=== PATIENT | male | born 1975 | race African-American/Black ===

== ENCOUNTER 2018-09-24 08:48 | Emergency (ER) | payer SELFPAY ==
[~2018-09-24] VITALS: Ht 185.4 cm; Wt 102.1 kg
[~2018-09-24 08:48] MED LIST: ACHD5005 PO; AMOX500C2 PO; CEFP500T4 PO; NAPR-243 PO; ONDAN4ODT PO
--- OUTSIDE RECORDS SUMMARY | 2018-09-24 08:53 | XMS REPORT | Continuity of Care Document ---
Author Organization Unknown Address Unknown Allergies Active Description Code Type Severity Reaction Onset Reported/Identified Relationship to Patient Clinical Status Yes No Known Drug Allergies [id number] Drug Allergy Unknown N/A 12/17/2012 Medications There is no data. Problems Date Dx Coded Attending Type Code Diagnosis Diagnosed By 12/17/2012 DANIEL DANIELS Ot 305.1 TOBACCO USE DISORDER 12/17/2012 DANIEL DANIELS Ot 521.00 UNSPEC DENTAL CARIES 12/17/2012 DANIEL DANIELS Ot 522.5 PERIAPICAL ABSCESS 02/15/2013 CHEMA HART DO Ot 382.9 OTITIS MEDIA NOS 02/15/2013 CHEMA HART DO Ot 388.70 OTALGIA NOS 02/15/2013 CHEMA HART DO Ot 462 ACUTE PHARYNGITIS 02/15/2013 CHEMA HART DO Ot 521.00 UNSPEC DENTAL CARIES Procedures There is no data. Results There is no data. Encounters ACCT No. Visit Date/Time Discharge Status Pt. Type Provider Facility Loc./Unit Complaint [id number] 02/15/2013 11:08:00 02/15/2013 12:19:00 DIS Emergency CHEMA HART DO [facility] ER EARACHE/DENTAL PAIN/SORE THROAT [id number] 12/17/2012 15:09:00 12/17/2012 16:22:00 DIS Emergency DANIEL DANIELS [facility] ER R FACIAL PAIN
--- OUTSIDE RECORDS SUMMARY | 2018-09-24 08:53 | XMS REPORT | Continuity of Care Document ---
Author Author [facility] [place] [facility] Address Unknown Phone Unavailable Insurance Providers Payer Name Policy Number Subscriber Name Relationship Self Pay Ham Au 01 Self / Same As Patient Advance Directives Directive Response Recorded Date Advance Directives N 12/17/12 3:20pm Problems No Known Problems or Medical conditions. Social History History Response Recorded Date/Time Alcohol Use Occasionally Uses 12/17/12 3:20pm Recreational Drug Use N 12/17/12 3:20pm Allergies, Adverse Reactions, Alerts Allergen Type Severity Reaction Last Updated No Known Drug Allergies 12/17/12 Medications Medication Dose Units Route Sig Qty Days Amoxicillin 2 Each PO TID 10 Hydrocodone Bit/Acetaminophen (Hydrocodon-Acetaminophen 5-325) 1 Each PO Q4H PRN 10 Response Recorded Date/Time Status not known Unknown Results No Known Relevant Diagnostic Tests, Laboratory Data and/or Discharge Summary. Encounters Encounter Location Date/Time Departed Emergency Room [facility] 12/17/12 3:09pm
--- NOTE | 2018-09-24 09:03 | NUR ---
PT NOT IN WAITING ROOM AT THIS TIME.
[2018-09-24] MEDS ORDERED: TRAM-42 PO (09:41)
[2018-09-24] MEDS ORDERED: AMOX500C2 PO (09:41)
--- NOTE | 2018-09-24 09:41 | ED EENT ---
History of Present Illness General Chief Complaint: Dental Problems/Pain Stated Complaint: MOUTH / FACE / HEAD PAIN Nursing Triage Note: ARRIVED VIA AMB TO ROOM 06 WITH COMPLAINTS OF FACIAL/HEAD PAIN THAT HE THINKS IS RELATED TO A TOOTH. Source: patient Exam Limitations: no limitations History of Present Illness Date Seen by Provider: Sep 24, 2018 Time Seen by Provider: 09:26 Initial Comments This 43-year-old gentleman presents to the emergency room with complaints of pain in the right face that seems to be originating from a right upper tooth. He has had facial pain for about a week and questionable subjective fever. He used a hydrocodone without benefit. He states he has been told not to take ibuprofen by Dr. Marroquin due to GI issues in the past. He had a recent root canal on the left. He has had multiple dental extractions and other dental procedures performed. He is afebrile. Allergies and Home Medications Allergies Coded Allergies: No Known Drug Allergies (Unverified , 12/17/12) Home Medications Amoxicillin 500 Mg Capsule, 1,000 MG PO BID Prescribed by: DASHAWN COLLINS on 09/24/18 0941 Tramadol HCl 50 Mg Tablet, 50 MG PO Q6H PRN for PAIN-MODERATE TO SEVERE Prescribed by: DASHAWN COLLINS on 09/24/18 0941 Patient Home Medication List Home Medication List Reviewed: Yes Review of Systems Review of Systems Constitutional: no symptoms reported Eyes: No Symptoms Reported Ears: No Symptoms Reported Nose: no symptoms reported Mouth: see HPI Throat: no symptoms reported Respiratory: no symptoms reported Cardiovascular: no symptoms reported Gastrointestinal: no symptoms reported Musculoskeletal: no symptoms reported Skin: no symptoms reported Neurological: No Symptoms Reported Hematologic/Lymphatic: No Symptoms Reported Past Njtjdyw-Pmxxlx-Pjphtn Hx Past Med/Social Hx: Reviewed and Corrections made Patient Social History Alcohol Use: Denies Use Recreational Drug Use: No Recent Foreign Travel: No Contact w/Someone Who Travel: No Recent Infectious Disease Expo: No Past Medical History Surgeries: Yes (dental) Respiratory: No Cardiac: No Neurological: No Genitourinary: No Gastrointestinal: No Musculoskeletal: No Endocrine: No Cancer: No Psychosocial: No Integumentary: No Blood Disorders: No Family Medical History No Pertinent Family Hx Physical Exam Vital Signs Vital Signs - First Documented 09/24/18 09:10 Temp 97.2 Pulse 100 Resp 16 B/P (MAP) 137/89 (105) Pulse Ox 96 O2 Delivery Room Air Height, Weight, BMI Height: 6'1.00" Weight: 225lbs. oz. 102.227977de; 30.87 BMI Method:Stated General Appearance: WD/WN, mild distress Eyes: bilateral eye normal inspection, bilateral eye PERRL, bilateral eye EOMI Ears: bilateral ear auricle normal, bilateral ear canal normal, bilateral ear TM normal Nose: normal inspection Mouth/Throat: pharynx normal, other (tenderness around the right upper posterior gingiva without overt abscess or drainage. Multiple missing teeth. Multiple dental caries. Facial tenderness in the maxillary region noted.) Neck: supple, normal inspection; No lymphadenopathy (R), No lymphadenopathy (L) Cardiovascular: regular rate, rhythm, no edema, no murmur Respiratory: lungs clear, normal breath sounds, no respiratory distress, no accessory muscle use Neurologic/Psychiatric: bushel girl II-XII nml as tested, no motor/sensory deficits, alert, normal mood/affect, oriented x 3 Skin: normal color, warm/dry Progress/Results/Core Measures Results/Orders My Orders Vital Signs/I&O Blood Pressure Mean: 105 Progress Progress Note : Progress Note Patient was given a Toradol injection and prescriptions were provided. Departure Impression Primary Impression: Pain, dental Disposition: 01 HOME, SELF-CARE Condition: Improved Departure-Patient Inst. Decision time for Depature: 09:36 Referrals: NO,LOCAL PHYSICIAN (PCP/Family) Primary Care Physician Patient Instructions: Dental Pain (DC) Add. Discharge Instructions: [place] your teeth gently twice daily with a soft bristle toothbrush. UA also rinse twice daily with an antiseptic mouthwash if tolerated. Follow-up with the dentist as soon as possible. Complete your antibiotics as prescribed. For pain you may take Tylenol (acetaminophen) up to 1000 mg every 6 hours in combination with Ultram (tramadol) as prescribed. Return to care if you have worsening symptoms despite treatment or if you develop new symptoms such as fevers over 100, obvious swelling of the face, development of abscess, etc. All discharge instructions reviewed with patient and/or family. Voiced understanding. Scripts Tramadol HCl (Ultram) 50 Mg Tablet 50 MG PO Q6H PRN for PAIN-MODERATE TO SEVERE, #20 TAB Prov: DASHAWN ABDALLA MD 09/24/18 Amoxicillin (Amoxicillin) 500 Mg Capsule 1000 MG PO BID, #21 CAP 0 Refills Prov: DASHAWN ABDALLA MD 09/24/18 DASHAWN ABDALLA MD Sep 24, 2018 09:41
[2018-09-24] MEDS ORDERED: KETOROLAC 30 MG/ML VIAL IM ONE (09:45)
[2018-09-24 10:00] VITALS: BP 127/83
== END 2018-09-24 10:00 | disposition home or self-care (01) ==
LOC: EDUNIT# 08:48 → ER 08:49
DX: K08.89 Other specified disorders of teeth and supporting structures (principal)
CPT/HCPCS: 99284

== ENCOUNTER 2018-10-05 12:33 | Emergency (ER) | payer SELFPAY ==
[~2018-10-05] VITALS: Ht 185.4 cm; Wt 102.1 kg
[~2018-10-05 12:33] MED LIST changes: +TRAM-42 PO
--- OUTSIDE RECORDS SUMMARY | 2018-10-05 12:38 | XMS REPORT | Continuity of Care Document ---
Author Organization Unknown Address Unknown Allergies Active Description Code Type Severity Reaction Onset Reported/Identified Relationship to Patient Clinical Status Yes No Known Drug Allergies [id number] Drug Allergy Unknown N/A 12/17/2012 Medications There [...] HART DO Ot 521.00 UNSPEC DENTAL CARIES 09/28/2018 LIANNE JALLOH, DASHAWN Austin Ot K08.89 OTHER SPECIFIED DISORDERS OF TEETH AND S 10/01/2018 DASHAWN ABDALLA MD Ot K08.89 OTHER SPECIFIED DISORDERS OF TEETH AND S Procedures There is no data. Results There is no data. Encounters ACCT No. Visit Date/Time Discharge Status Pt. Type Provider Facility Loc./Unit Complaint [id number] 09/24/2018 08:49:00 09/24/2018 10:00:00 DIS Outpatient DASHAWN ABDALLA MD [facility] ER MOUTH / FACE / HEAD PAIN [id number] 02/15/2013 11:08:00 02/15/2013 12:19:00 DIS Emergency CHEMA HART DO [facility] ER EARACHE/DENTAL PAIN/SORE THROAT [id number] 12/17/2012 15:09:00 12/17/2012 16:22:00 DIS Emergency DANIEL DANIELS [facility] ER R FACIAL PAIN
[2018-10-05] MEDS ORDERED: DOXY100T2 PO (12:44)
--- NOTE | 2018-10-05 12:44 | ED GU-Male ---
General Stated Complaint: TESTICULAR SWELLING Source: patient Exam Limitations: no limitations History of Present Illness Date Seen by Provider: Oct 05, 2018 Time Seen by Provider: 12:39 Initial Comments To ER with reports of right testicular swelling and pain. This began a few days ago, he notices improvement when he lifts of the testicles. Pain radiates into the low abdomen. It seems to affect both testicles but right greater than left. Girlfriend is currently being evaluated for UTI, he suspects he may have caught this from her. Overall his pain is much improved from previously he would still like to be checked Timing/Duration: getting worse Severity/Quality: moderate Radiation: none Prior Genitourinary Problems: none Associated Symptoms: dysuria Allergies and Home Medications Allergies Coded Allergies: No Known Drug Allergies (Unverified , 12/17/12) Home Medications Amoxicillin 500 Mg Capsule, 1,000 MG PO BID Prescribed by: DASHAWN COLLINS on 09/24/18 0941 Doxycycline Hyclate 100 Mg Tablet, 100 MG PO BID Prescribed by: ZACH CULLEN on 10/05/18 1244 Tramadol HCl 50 Mg Tablet, 50 MG PO Q6H PRN for PAIN-MODERATE TO SEVERE Prescribed by: DASHAWN COLLINS on 09/24/18 0941 Patient Home Medication List Home Medication List Reviewed: Yes Review of Systems Review of Systems Constitutional: see HPI EENTM: see HPI Respiratory: no symptoms reported Cardiovascular: no symptoms reported Genitourinary: see HPI Musculoskeletal: no symptoms reported Skin: no symptoms reported Psychiatric/Neurological: No Symptoms Reported Endocrine: No Symptoms Reported Past Vtgxsdr-Bunouu-Zulqgi Hx Patient Social History Recent Foreign Travel: No Contact w/Someone Who Travel: No Past Medical History Surgeries: Yes (dental) Respiratory: No Cardiac: No Neurological: No Genitourinary: No Gastrointestinal: No Musculoskeletal: No Endocrine: No Cancer: No Psychosocial: No Integumentary: No Blood Disorders: No Family Medical History No Pertinent Family Hx Physical Exam Vital Signs Vital Signs - First Documented 10/05/18 12:43 Temp 97.9 Pulse 70 Resp 20 B/P (MAP) 141/95 (110) Pulse Ox 99 O2 Delivery Room Air Capillary Refill : Height, Weight, BMI Height: 6'1.00" Weight: 225lbs. oz. 102.290956ji; 30.87 BMI Method:Stated General Appearance: WD/WN, no apparent distress HEENT: PERRL/EOMI, normal ENT inspection Cardiovascular: regular rate, rhythm, no murmur Respiratory: no respiratory distress, no accessory muscle use Genital/Rectal: normal genital exam, other (Minimal tenderness to palpation of the right epididymis) Neurologic/Psychiatric: alert, normal mood/affect, oriented x 3 Skin: normal color, warm/dry Progress/Results/Core Measures Suspected Sepsis SIRS Temperature: Pulse: Respiratory Rate: Blood Pressure / Mean: Results/Orders My Orders Orders - ZACH CULLEN APRN Ua Culture If Indicated (10/05/18 12:37) Neis Maxwell Dna Urine Test (10/05/18 12:37) Chlamydia Trachomatis Urine (10/05/18 12:37) Azithromycin Tablet (Zithromax Tablet) (10/05/18 12:45) Ceftriaxone For Im Use (Rocephin For Im (10/05/18 12:45) Lidocaine 1% Inj 20 Ml (Xylocaine 1% Inj (10/05/18 12:45) Vital Signs/I&O 10/05/18 12:43 Temp 97.9 Pulse 70 Resp 20 B/P (MAP) 141/95 (110) Pulse Ox 99 O2 Delivery Room Air Capillary Refill : Departure Impression Primary Impression: Epididymitis Disposition: 01 HOME, SELF-CARE Condition: Stable Departure-Patient Inst. Decision time for Depature: 12:43 Referrals: NO,LOCAL PHYSICIAN (PCP/Family) Primary Care Physician Patient Instructions: Epididymitis Add. Discharge Instructions: 1. Pain will improve with elevation of the scrotum/testicles. Pain medication as directed. Ice pack will also help with the discomfort. Antibiotics as directed. Scripts Doxycycline Hyclate (Doxycycline Hyclate) 100 Mg Tablet 100 MG PO BID, #20 TAB 0 Refills Prov: ZACH CULLEN APRN 10/05/18 ZACH CULLEN APRN Oct 05, 2018 12:44
[2018-10-05] MEDS ORDERED: cefTRIAXone 1,000 MG/2.86 ml vial (IM ONLY) IM ONE (12:45)
[2018-10-05] MEDS ORDERED: LIDOCAINE 1% INJ 20 ML 20 ML VIAL INJ ONE (12:45)
[2018-10-05] MEDS ORDERED: AZITHROMYCIN 250 MG TAB (ZITHROMAX) PO SCH (12:45)
[2018-10-05 13:02] LABS: BILIRUBIN,URINE NEGATIVE (NEGATIVE); CLARITY,URINE CLEAR; COLOR,URINE YELLOW; GLUCOSE, URINE (UA) NEGATIVE (NEGATIVE); KETONES,URINE NEGATIVE (NEGATIVE); LEUKOCYTE ESTERASE ,URINE 1+ (NEGATIVE); NITRITE,URINE NEGATIVE (NEGATIVE); PH,URINE 7 (5-9); PROTEIN,URINE 1+ (NEGATIVE); UROBILINOGEN,URINE 1 MG/DL (NORMAL)
[2018-10-05 13:18] LABS: BACTERIA,URINE NEGATIVE /HPF; RBC,URINE RARE /HPF
[2018-10-05 13:28] VITALS: BP 141/95
== END 2018-10-05 13:27 | disposition home or self-care (01) ==
LOC: EDUNIT# 12:33 → ER 12:34
DX: N45.1 Epididymitis (principal)
CPT/HCPCS: 36415; 81000; 87088; 87491; 87591; 96372; 99284

== ENCOUNTER 2018-12-03 22:39 | Emergency (ER) | payer SELFPAY ==
[~2018-12-03] VITALS: Ht 185 cm; Wt 103.0 kg
[~2018-12-03 22:39] MED LIST changes: +DOXY100T2 PO
[2018-12-03] MEDS ORDERED: IBUPROFEN 800 MG (MOTRIN) TAB PO STA (22:50)
--- NOTE | 2018-12-03 22:56 | ED Upper Extremity ---
General Stated Complaint: RT SHOULDER PAIN Source: patient History of Present Illness Date Seen by Provider: Dec 03, 2018 Time Seen by Provider: 22:42 Initial Comments 43-year-old male presenting with complaints of right shoulder pain. He was helping to carry him moved some heavy tree limbs around 5 PM when the person helping him dropped to the other side of the limb. This caused him to be going on care and the have a tree limb and it was too heavy for him to continue to hold. He felt something pop in his shoulder and upper arm. He dropped the limb and has had continued pain ever since. He has not taken anything for the pain. He came in now at almost 11 PM, almost 6 hours after the injury. He denies any numbness or tingling in his arm. He has increased pain trying to raise his arm. He states that it feels like his arm was flexing on the right side when he isn't moving it. Allergies and Home Medications Allergies Coded Allergies: No Known Drug Allergies (Unverified , 12/17/12) Home Medications Amoxicillin 500 Mg Capsule, 1,000 MG PO BID Prescribed by: DASHAWN COLLINS on 09/24/18 0941 Doxycycline Hyclate 100 Mg Tablet, 100 MG PO BID Prescribed by: ZACH CULLEN on 10/05/18 1244 Ibuprofen 800 Mg Tablet, 800 MG PO Q8H PRN for PAIN Prescribed by: ERNESTINA HOUSTON on 12/03/18 2327 Tramadol HCl 50 Mg Tablet, 50 MG PO Q6H PRN for PAIN-MODERATE TO SEVERE Prescribed by: DASHAWN COLLINS on 09/24/18 0941 Patient Home Medication List Home Medication List Reviewed: Yes Review of Systems Constitutional: No chills, No fever EENTM: no symptoms reported Respiratory: no symptoms reported Cardiovascular: no symptoms reported Gastrointestinal: no symptoms reported Genitourinary: no symptoms reported Musculoskeletal: see HPI Skin: no symptoms reported Psychiatric/Neurological: No Symptoms Reported Past Vlhvtcw-Mhpbue-Dfhkgc Hx Past Med/Social Hx: Reviewed Nursing Past Med/Soc Hx Patient Social History Alcohol Beverage of Choice: Beer, Whiskey Type Used: Cigarettes Recent Foreign Travel: No Contact w/Someone Who Travel: No Recent Hopitalizations: No Seasonal Allergies Seasonal Allergies: Yes Past Medical History Surgeries: Yes (dental) Respiratory: No Cardiac: No Neurological: No Genitourinary: No Gastrointestinal: No Musculoskeletal: No Endocrine: No HEENT: No Cancer: No Psychosocial: No Integumentary: No Blood Disorders: No Family Medical History No Pertinent Family Hx Physical Exam Vital Signs Vital Signs - First Documented 12/03/18 22:43 Temp 36.3 Pulse 109 Resp 18 B/P (MAP) 161/92 (115) Pulse Ox 96 O2 Delivery Room Air Capillary Refill : Height, Weight, BMI Height: 6'1.00" Weight: 225lbs. oz. 102.423336lc; 30.87 BMI Method:Stated General Appearance: WD/WN, no apparent distress Cardiovascular: normal peripheral pulses Shoulder: bone tenderness, pain, soft tissue tenderness (pain with palpation over the shoulder and down into the biceps area. He has apparent deformity over the biceps that makes it look like he has a possible disruption or tear of his biceps compared to the left.), swelling (apparent bunching of the biceps for a "jessica sign" when trying to flex on right side.) Elbow/Forearm: normal inspection, non-tender, no evidence of injury Wrist: Yes normal inspection, Yes non-tender, Yes no evidence of injury, Yes normal ROM Hand: normal inspection, non-tender, no evidence of injury, normal ROM Neurologic/Tendon: normal sensation Neurologic/Psychiatric: alert, oriented x 3 Skin: normal color, warm/dry Progress/Results/Core Measures Results/Orders My Orders Orders - ERNESTINA HOUSTON MD Shoulder 3 View Right (12/03/18 22:50) Ibuprofen Tablet (Motrin Tablet) (12/03/18 22:50) Ice: Apply To Affected Area (12/03/18 22:50) Orthopedic Equiment (12/03/18 23:38) Vital Signs/I&O 12/03/18 22:43 Temp 36.3 Pulse 109 Resp 18 B/P (MAP) 161/92 (115) Pulse Ox 96 O2 Delivery Room Air Progress Progress Note #1: Progress Note Will give ibuprofen 800 mg and ice pack to help with pain. Will obtain x-rays of the right shoulder Progress Note #2: Progress Note No acute bony abnormality on x-rays on my review of the 3 view films. Counseled on results and advised to follow-up with orthopedics. We will place in a sling and have him treat inflammation with ice and ibuprofen. Diagnostic Imaging Diagonstic Imaging: Xray Plain Films/CT/US/NM/MRI: other (shoulder) Comments On my review of the 3 views of his right shoulder xrays he has no acute dislocation, fracture or deformity seen. Reviewed: Reviewed by Me Departure Impression Primary Impression: Traumatic rupture of right biceps tendon Qualified Codes: S46.211A - Strain of muscle, fascia and tendon of other parts of biceps, right arm, initial encounter Additional Impression: Right shoulder pain Qualified Codes: M25.511 - Pain in right shoulder Disposition: 01 HOME, SELF-CARE Condition: Stable Departure-Patient Inst. Decision time for Depature: 23:23 Referrals: VEE ORDONEZ DO NO,LOCAL PHYSICIAN (PCP) Primary Care Physician Patient Instructions: Biceps Tendon Rupture, How to Use a Shoulder Sling, Shoulder Pain (DC) Add. Discharge Instructions: Ice 20-30 minutes every few hours as needed to help with pain and swelling. Rest your arm in the sling for the next few days to help with pain and inflammation. After 3-4 days make sure you are taking your arm out to move it around and get some range of motion and use of the shoulder and arm so it does not freeze up and stiffen up on you Call Yury Sifuentes with Orthopedics at [phone], Dr. Ordonez with [id number], or Orthopedics doctor of your choice in the morning to arrange follow up and be seen for your shoulder and what appears to be a Biceps tendon tear. They may need to do an MRI or other testing to further evaluate your arm and shoulder. Scripts Ibuprofen (Ibuprofen) 800 Mg Tablet 800 MG PO Q8H PRN for PAIN for 10 Days, #30 TAB 0 Refills Prov: ERNESTINA HOUSTON MD 12/03/18 ERNESTINA HOUSTON MD Dec 03, 2018 22:56
[2018-12-03] MEDS ORDERED: IBUP-1780 PO (23:27)
[2018-12-03 23:48] VITALS: BP 159/89
--- NOTE | 2018-12-04 05:49 | Diagnostic Imaging Report ---
INDICATION: Right shoulder pain COMPARISON: None. FINDINGS: 3 views of the right shoulder were obtained. There is no fracture, dislocation, or other acute bony abnormality identified. The soft tissues appear unremarkable. No radiopaque foreign bodies identified. The visualized portions of the right lung are clear. IMPRESSION: No acute fractures or dislocations of the right shoulder. Dictated by: Dictated on workstation # [id number]
== END 2018-12-03 23:48 | disposition home or self-care (01) ==
LOC: EDUNIT# 22:39 → ER FS 22:41
DX: S46.211A Strain of muscle, fascia and tendon of other parts of biceps, right arm, initial encounter (principal); X50.0XXA Overexertion from strenuous movement or load, initial encounter
CPT/HCPCS: 73030

== ENCOUNTER → 2019-03-09 | Outpatient (CLI) | payer SELFPAY ==
[~2019-03-09] MED LIST changes: +IBUP-1780 PO
== END ==
LOC: LAB 11:09
PROVIDERS: ATTEND Family Medicine
DX: R36.9 Urethral discharge, unspecified (principal)
CPT/HCPCS: 36415; 86780; 87491; 87591

== ENCOUNTER 2019-05-05 15:29 | Emergency (ER) | payer SELFPAY ==
[~2019-05-05] VITALS: Ht 188 cm; Wt 95.8 kg
--- NOTE | 2019-05-05 15:38 | NUR ---
ATTEMPT TO CALL PT BACK TO A ROOM ET PT NOT IN WAITING ROOM.
--- NOTE | 2019-05-05 16:07 | NUR ---
PT CONTINUES NOT TO BE IN WAITING ROOM.
--- NOTE | 2019-05-05 16:21 | Diagnostic Imaging Report ---
PROCEDURE: US Scrotum. TECHNIQUE: Multiple real-time grayscale images were obtained over the scrotum in various projections bilaterally. INDICATION: Right testicular pain off and on for six months. COMPARISON: None available. FINDINGS: Right: The right testis is normal in size measuring 4.0 x 2.1 x 2.6 cm cm. It has homogenous echogenicity without mass or microcalcification. Blood flow is present in the right testis by color doppler imaging, and low resistance waveforms are present. The right epididymis is heterogeneously thickened and has increased vascularity present. Trace right hydrocele. There are dilated anechoic vessels around the superior aspect of the right testicle which increase with Valsalva maneuver, suggestive of varicocele. Left: The left testis is normal in size measuring 4.2 x 2.2 x 2.3 cm. It has homogenous echogenicity without mass or microcalcification. Blood flow is present in the left testis by color doppler imaging, and low resistance waveforms are present. Simple cyst in the epididymal head measures 0.6 cm in maximal diameter. No hydrocele or varicole. IMPRESSION: 1. Heterogeneous thickened right epididymis, suggests epididymitis. 2. Dilated vessels around the right testicle are likely reactive in nature. However, a right-sided varicocele could be present. Advise a follow-up scrotal ultrasound in 6-8 weeks after appropriate medical management to assess for resolution. Dictated by: Dictated on workstation # [id number]
[2019-05-05 16:42] LABS: BILIRUBIN,URINE NEGATIVE (NEGATIVE); CLARITY,URINE CLEAR; COLOR,URINE YELLOW; GLUCOSE, URINE (UA) NEGATIVE (NEGATIVE); KETONES,URINE NEGATIVE (NEGATIVE); LEUKOCYTE ESTERASE ,URINE NEGATIVE (NEGATIVE); NITRITE,URINE NEGATIVE (NEGATIVE); PROTEIN,URINE NEGATIVE (NEGATIVE)
--- NOTE | 2019-05-05 16:44 | ED GU-Male ---
General Chief Complaint: Abdominal/GI Problems Stated Complaint: RIGHT TESTICLE PAIN Nursing Triage Note: RIGHT FLANK PAIN THAT RADIATES INTO RIGHT TESTICLE. STARTED AFTER HE LIFTED BOXES X2 DAYS AGO. Source: patient, family Exam Limitations: no limitations History of Present Illness Date Seen by Provider: May 05, 2019 Time Seen by Provider: 16:44 Timing/Duration: just prior to arrival Severity/Quality: moderate Location: scrotal Radiation: none Activities at Onset: none Prior Genitourinary Problems: none Associated Symptoms: dysuria Allergies and Home Medications Allergies Coded Allergies: No Known Drug Allergies (Unverified , 12/17/12) Patient Home Medication List Home Medication List Reviewed: Yes Review of Systems Review of Systems Constitutional: see HPI, chills; No fever EENTM: see HPI Respiratory: no symptoms reported Cardiovascular: no symptoms reported Genitourinary: no symptoms reported Musculoskeletal: no symptoms reported Skin: no symptoms reported Psychiatric/Neurological: No Symptoms Reported Endocrine: No Symptoms Reported Past [id number]-Nirftb-Qbelvp Hx Patient Social History Alcohol Beverage of Choice: Beer, Whiskey Type Used: Cigarettes 2nd Hand Smoke Exposure: No Recent Foreign Travel: No Contact w/Someone Who Travel: No Recent Infectious Disease Expo: No Recent Hopitalizations: No Seasonal Allergies Seasonal Allergies: Yes Past Medical History Surgeries: No Respiratory: No Cardiac: No Neurological: No Genitourinary: No Gastrointestinal: No Musculoskeletal: No Endocrine: No HEENT: No Cancer: No Psychosocial: No Integumentary: No Blood Disorders: No Family Medical History No Pertinent Family Hx Physical Exam Vital Signs Vital Signs - First Documented 05/05/19 16:23 Temp 36.7 Pulse 74 Resp 16 B/P (MAP) 151/100 (117) Pulse Ox 100 O2 Delivery Room Air Capillary Refill : Less Than 3 Seconds Height, Weight, BMI Height: 6'1.00" Weight: 225lbs. oz. 102.710016fg; 27.00 BMI Method:Stated General Appearance: WD/WN, no apparent distress HEENT: PERRL/EOMI, normal ENT inspection Neck: non-tender, full range of motion Respiratory: no respiratory distress, no accessory muscle use Gastrointestinal: normal bowel sounds, non tender Male: testicular tenderness (right testicular epididymal tenderness to palpation) Extremities: normal range of motion, non-tender Neurologic/Psychiatric: alert, normal mood/affect, oriented x 3 Skin: normal color, warm/dry Progress/Results/Core Measures Suspected Sepsis Recent Fever Within 48 Hours: No Infection Criteria Present: Suspected New Infection New/Unexplained Altered Menta: No Sepsis Screen: No Definite Risk SIRS Temperature: Pulse: 74 Respiratory Rate: 16 Blood Pressure 151 /100 Mean: 117 Results/Orders Lab Results Laboratory Tests Test 05/05/19 16:37 Range/Units My Orders Orders - ZACH CULLEN APRN Us Scrotum (Testicle) [id number] (05/05/19 15:32) Ua Culture If Indicated (05/05/19 15:32) Vital Signs/I&O 05/05/19 16:23 Temp 36.7 Pulse 74 Resp 16 B/P (MAP) 151/100 (117) Pulse Ox 100 O2 Delivery Room Air Capillary Refill : Less Than 3 Seconds Blood Pressure Mean: 117 Departure Communication (Admissions) Spoke with Dr. Delaney's office, they'll see him May 20 at 2:30 PM, he would need to bring $200 with him. Since he has had no improvement with treatment of this with Rocephin and Zithromax and doxycycline in the past in September when I saw him, I'll use Levaquin this time. Impression Primary Impression: Epididymitis Disposition: HOME, SELF-CARE Condition: Stable Departure-Patient Inst. Decision time for Depature: 16:48 Referrals: NO,LOCAL PHYSICIAN (PCP) Primary Care Physician JUANITA DELANEY MD Patient Instructions: Epididymitis Add. Discharge Instructions: 1. Antibiotics as directed 2. Pain medication as directed. Follow-up with Dr. Delaney, he will need to bring $200 with him according to office staff for the visit. All discharge instructions reviewed with patient and/or family. Voiced understanding. Scripts Levofloxacin (Levaquin) 500 Mg Tablet 500 MG PO DAILY, #10 TAB Prov: ZACH CULLEN APRN 05/05/19 Hydrocodone Bit/Acetaminophen (Hydrocodone/Acetaminophen 5/325mg Tablet) 1 Tab Tab 1 EACH PO Q4-6HR PRN for PAIN-MODERATE MDD 10 for 3 Days, #10 TAB Prov: ZACH CULLEN APRN 05/05/19 Work/School Note: Work Release Form Date Seen in the Emergency Department: May 05, 2019 Return to Work: May 07, 2019 ZACH CULLEN APRN May 05, 2019 16:44
[2019-05-05] MEDS ORDERED: ACHD5005 PO (16:50)
[2019-05-05] MEDS ORDERED: LEVO500T2 PO (16:50)
[2019-05-05 17:05] VITALS: BP 144/98
[2019-05-05 17:11] LABS: RBC,URINE 0-2 /HPF
[2019-05-05 17:12] LABS: BACTERIA,URINE NEGATIVE /HPF
== END 2019-05-05 17:05 | disposition home or self-care (01) ==
LOC: EDUNIT# 15:29 → ER 15:31
DX: N45.1 Epididymitis (principal)
CPT/HCPCS: 76870; 81000

== ENCOUNTER 2021-04-03 21:57 | Emergency (ER) | payer SELFPAY ==
[~2021-04-03] VITALS: Ht 185 cm; Wt 102.1 kg
[~2021-04-03 21:57] MED LIST changes: +LEVO500T2 PO
[2021-04-03] MEDS ORDERED: TRIM/SULFAMETH 160/800 (SEPTRA DS) TAB PO ONE (22:30)
--- NOTE | 2021-04-03 22:34 | ED General ---
General Chief Complaint: Skin/Wound Problems Stated Complaint: LT LEG SWELLING,REDDNESS,PAIN Nursing Triage Note: Pt reports possible spider bite to left thigh. Pt c/o redness, swelling and pus since yesterday. Pt denies fever or taking Tylenol/Motrin for pain. Source of Information: Patient Exam Limitations: No Limitations History of Present Illness Date Seen by Provider: Apr 03, 2021 Time Seen by Provider: 22:12 Initial Comments This 46-year-old gentleman presents to the emergency room with an area of pain, erythema, and swelling on the left anterior lateral thigh. Symptoms have been present for 2 days. He denies any fever. He was able to express some pus out of this lesion. He presumes it to be a spider bite. He denies any known injury or observed bites. Allergies and Home Medications Allergies Coded Allergies: No Known Drug Allergies (Unverified , 12/17/12) Patient Home Medication List Home Medication List Reviewed: Yes Hydrocodone Bit/Acetaminophen (Lortab 5 Mg Tablet) 1 Tab Tab, 1 EACH PO Q4-6HR PRN for PAIN-MODERATE Prescribed by: ZACH CULLEN on 05/05/19 1650 Levofloxacin (Levaquin) 500 Mg Tablet, 500 MG PO DAILY Prescribed by: ZACH CULLEN on 05/05/19 1650 Sulfamethoxazole/Trimethoprim (Bactrim Ds Tablet) 1 Each Tablet, 1 EACH PO TID Prescribed by: DASHAWN COLLINS on 04/03/212236 Review of Systems Review of Systems Constitutional: no symptoms reported EENTM: no symptoms reported Respiratory: no symptoms reported Cardiovascular: no symptoms reported Gastrointestinal: no symptoms reported Genitourinary: no symptoms reported Musculoskeletal: no symptoms reported Skin: see HPI Psychiatric/Neurological: No Symptoms Reported Hematologic/Lymphatic: No Symptoms Reported Immunological/Allergic: no symptoms reported Past Fdxxtmy-Aiarxh-Opfcqr Hx Patient Social History Tobacco Use?: No Use of E-Cig and/or Vaping dev: No Substance use?: Yes Substance type: Marijuana Substance frequency: Daily Alcohol Use?: No Pt feels they are or have been: No Immunizations Up To Date Influenza Vaccine Up-to-Date: No; Not Current Second COVID19 Vaccination Ronak: Zahira 03/30/21 Seasonal Allergies Seasonal Allergies: Yes Past Medical History Surgeries: No Respiratory: No Cardiac: No Neurological: No Genitourinary: No Gastrointestinal: No Musculoskeletal: No Endocrine: No HEENT: No Cancer: No Psychosocial: No Integumentary: No Blood Disorders: No Family Medical History No Pertinent Family Hx Physical Exam Vital Signs Vital Signs - First Documented 04/03/21 22:05 Temp 36.7 Pulse 98 Resp 17 B/P (MAP) 133/80 (97) Pulse Ox 98 O2 Delivery Room Air Capillary Refill : Less Than 3 Seconds Height, Weight, BMI Height: 6'1.00" Weight: 225lbs. oz. 102.161714fb; 29.00 BMI Method:Stated General Appearance: No Apparent Distress, WD/WN HEENT: PERRL/EOMI, Normal ENT Inspection Neck: Normal Inspection Respiratory: Lungs Clear, Normal Breath Sounds Cardiovascular: Regular Rate, Rhythm, No Edema, No Murmur Extremity: Other (There is an abscess coming to a head on the left anterior lateral thigh with surrounding erythema and induration. 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 Norm as Tested Skin: Erythema, Other (See above) Progress/Results/Core Measures Suspected Sepsis SIRS Temperature: Pulse: 98 Respiratory Rate: 17 Blood Pressure 133 /80 Mean: 97 Results/Orders My Orders Orders - DASHAWN ABDALLA MD Wound Culture (04/03/21 22:25) Sulfamethoxazole/Trimet Ds Tab (Bactrim (04/03/21 22:30) Medications Given in ED Current Medications Medications Dose Ordered Sig/Hector Route Start Time Stop Time Status Last Admin Dose Admin Trimethoprim/ Sulfamethoxazole 2 ea ONCE ONCE PO 04/03/21 22:30 04/03/21 22:31 DC 04/03/21 22:42 2 EA Vital Signs/I&O 04/03/21 04/03/21 22:05 22:43 Temp 36.7 36.7 Pulse 98 98 Resp 17 17 B/P (MAP) 133/80 (97) 133/80 Pulse Ox 98 98 O2 Delivery Room Air Room Air Capillary Refill : Less Than 3 Seconds Blood Pressure Mean: 97 Progress Note : Progress Note There was obvious superficial abscess formation with surrounding cellulitis on the left thigh. The abscess head was cleaned with alcohol. The intact skin over the abscess head was nicked with a hypodermic needle and thick purulent drainage was expressed from the abscess. Culture was obtained. Antibiotic ointment and bandage were applied. Patient was started on Bactrim DS with 2 tablets in the ER. See discharge instructions for further discussion. Departure Impression Primary Impression: Abscess or cellulitis of thigh Disposition: 01 HOME, SELF-CARE Condition: Improved Departure-Patient Inst. Decision time for Depature: 22:28 Referrals: NO,LOCAL PHYSICIAN (PCP/Family) Primary Care Physician Patient Instructions: Skin Abscess, Cellulitis (Skin Infection), Adult (DC) Add. Discharge Instructions: Complete your antibiotics as prescribed. Your wound culture should result in about 48 hours. You can have your primary care provider check on the result to ensure you are taking an antibiotic appropriate for your infection. You may use ibuprofen up to 600 mg every 6 hours and/or Tylenol (acetaminophen) up to 1000 mg every 6 hours as needed for pain control. Soak the abscess in warm soapy water or use warm compresses for 20 to 30 minutes several times a day to encourage draining until the infection improves. You may also apply antibiotic ointment and a Band-Aid to help keep the skin soft. You may gently express any collection of pus if it develops. Return to the ER if you have worsening symptoms including development of fever, rapid heart rate, etc. or if the abscess closes off and swells up again. Call with questions or concerns. All discharge instructions reviewed with patient and/or family. Voiced understanding. Scripts Sulfamethoxazole/Trimethoprim (Bactrim Ds Tablet) 1 Each Tablet 1 EACH PO TID, #30 TAB Prov: DASHAWN ABDALLA MD 04/03/21 DASHAWN ABDALLA MD Apr 03, 2021 22:34
[2021-04-03] MEDS ORDERED: SULF1TAB38 PO (22:37)
[2021-04-03 22:43] VITALS: BP 133/80
== END 2021-04-03 22:43 | disposition home or self-care (01) ==
LOC: EDUNIT# 21:57 → ER FS 21:59
DX: L02.416 Cutaneous abscess of left lower limb (principal); L03.116 Cellulitis of left lower limb
CPT/HCPCS: 87070; 87077; 87186; 87205; 99283